=== PATIENT | female | born 1945 | race Caucasian/White ===

== ENCOUNTER 2021-01-22 20:07 | Emergency (ER) | payer BC ==
[~2021-01-22] VITALS: Ht 162.6 cm; Wt 51.3 kg
[2021-01-22 20:43] VITALS: BP 169/95
--- NOTE | 2021-01-22 21:33 | NUR ---
PT AMBULATED TO BED 11
--- NOTE | 2021-01-22 21:45 | NUR ---
PT BIB SELF FOR C/O LEFT KNEE PAIN. PT HAS BEEN EXPERIENCING LEFT KNEE PAIN X 3 WEEKS THAT RADIATES TO LEFT CALF UPON WALKING. PT WENT TO URGENT CARE WHO PERFORMED AN XRAY, WHICH WAS NEGATIVE FOR FINDINGS. PT WAS REFERRED TO ED TO R/O DVT. PT NOTED WITH LEFT KNEE SWELLING. NO NOTED REDNESS OR WARMTH TO TOUCH. PT IS AMBULATORY WITH SLIGHT LIMPING NOTED. DENIES NUMBNESS OR TINGLING, CMS INTACT, CAP REFILL < 3 SECONDS. PT DENIES N/V/D, FEVER, CHILLS, SOB, CP. MED HX: HTN ALLERGIES: NKA
[2021-01-22] MEDS ORDERED: KETOROLAC 15 MG/ML VIAL IM ONE (21:55)
--- NOTE | 2021-01-22 21:55 | NUR ---
ERMD AT BEDSIDE.
--- NOTE | 2021-01-22 22:14 | NUR ---
ULTRASOUND AT BEDSIDE.
--- NOTE | 2021-01-22 22:15 | NUR ---
IV 22 G LAC EST., LABS DRAWN AND HAND GIVEN TO RAHUL AWNING ERECTOR, AT BEDSIDE.
[2021-01-22 22:25] LABS: BASOPHILS % (AUTO) 0.6 % (0.0-2.0); EOSINOPHILS # (AUTO) 0.1 K/uL (0-0.4); EOSINOPHILS % (AUTO) 2.1 % (0.0-4.0); HEMATOCRIT 35.2 % (36-48); HEMOGLOBIN 11.9 g/dL (12.0-16.0); LYMPHOCYTES % (AUTO) 33.3 % (20.5-51.1); MEAN CORPUSCULAR HEMOGLOBIN 32 pg (27-31); MEAN CORPUSCULAR HGB CONC 34 g/dL (33-37); MEAN CORPUSCULAR VOLUME 93.5 fL (80-94); MONOCYTES # (AUTO) 0.4 K/uL (0.8-1.0); MONOCYTES % (AUTO) 6.8 % (1.7-9.3); NEUTROPHILS # (AUTO) 3.5 K/uL (1.8-7.7); NEUTROPHILS % (AUTO) 57.2 % (42.2-75.2); PLATELET COUNT (AUTO) 236 K/uL (140-450); RED BLOOD CELL COUNT(AUTO) 3.76 MIL/uL (4.20-5.40); RED CELL DISTRIBUTION WIDTH 13.8 % (11.6-13.7)
[2021-01-22 22:31] LABS: ANION GAP 15.9 (8-16); CARBON DIOXIDE 22.5 mmol/L (21-32); CHLORIDE 109 mmol/L (98-107); CREATININE 1.9 mg/dL (0.6-1.3); GLUCOSE 103 mg/dL (74-106); POTASSIUM 4.4 mmol/L (3.5-5.1); SODIUM SERUM 143 mmol/L (136-145); UREA NITROGEN, BLOOD 33 mg/dL (7-18)
[2021-01-22] MEDS ORDERED: ACET-8386 PO (23:13)
[2021-01-22] MEDS ORDERED: NAPR-54 PO (23:13)
[2021-01-22 23:30] VITALS: BP 151/77
--- NOTE | 2021-01-22 23:30 | NUR ---
Patient discharged with v/s stable. Written and verbal after care instructions given and explained. Patient alert, oriented and verbalized understanding of instructions. Ambulatory with steady gait. All questions addressed prior to discharge. ID band removed. Patient advised to follow up with PMD. Rx of NORCO AND NAPROSYN given. Patient educated on indication of medication including possible reaction and side effects. Opportunity to ask questions provided and answered.
== END 2021-01-22 23:30 | disposition home or self-care (01) ==
LOC: MED 20:07
DX: S86.912A Strain of unspecified muscle(s) and tendon(s) at lower leg level, left leg, initial encounter (principal); X58.XXXA Exposure to other specified factors, initial encounter; Y93.89 Activity, other specified; Y92.89 Other specified places as the place of occurrence of the external cause; Y99.8 Other external cause status
CPT/HCPCS: 36415; 80048; 85025; 93971; 96372; 99284; J1885